=== PATIENT | male | born 1970 | race Caucasian/White ===

== ENCOUNTER 2024-07-28 15:01 | Emergency (ER) | payer BC ==
[2024-07-28 15:13] VITALS: TEMP 102.9
--- NOTE | 2024-07-28 15:28 | ERPHSYRPT ---
- History of Present Illness Time Seen by Provider: 07/28/24 15:20 Source: patient Exam Limitations: no limitations Patient Subjective Stated Complaint: c/o of shortness of breath Triage Nursing Assessment: patient brought into ED by EMS with c/o shortness of breath. patient states that he is has felt bad since yesterday and it keeps getting worse. patient has a productive cough, pt states sputum is yellow/greenish. patient has a temp of 102.9 per our thermometer. patient is 94% on RA. lungs sounds clear throughout. skin is warm to touch, tachycardic, slightly hypertensive, patient doesn't appear to be in any distress at this time. Physician History: This is a 53-year-old white male patient of primary care provider Kwame and presents to the emergency department with 1 day history of productive cough of yellowish-greenish sputum, shortness of breath, myalgias and arthralgias. He presents today with fever of 102.9 F. His room air oxygen saturation levels 94 to 96%. He denies chest pain. He has no known drug allergies and he takes no medications chronically. Patient was brought to the emergency department by the paramedics who provided him with nebulizer treatment of DuoNeb and 125 mg of intravenous Solu-Medrol. He has no known exposures to individuals with similar symptoms or who have been diagnosed with viral illness. Timing/Duration: yesterday Cough Quality/Degree: moderate, productive cough, sputum Possible Cause: no prior episodes Modifying Factors: Improves With: coughing Associated Symptoms: fever, cough, muscle aches, shortness of breath, No chest pain/soreness Allergies/Adverse Reactions: No Known Drug Allergies Allergy (Verified 07/28/24 15:13) Hx Tetanus, Diphtheria Vaccination/Date Given: Yes Hx Influenza Vaccination/Date Given: No Hx Pneumococcal Vaccination/Date Given: No Travel Risk - International Travel Have you traveled outside of the country in past 3 weeks: No - Emerging Infectious Disease Are you exhibiting symptoms associated with any current EIDs: Yes Symptoms: Diarrhea, Shortness of Breath - Review of Systems Constitutional: Fever Eyes: No Symptoms Ears, Nose, & Throat: No Symptoms Respiratory: Cough, Dyspnea Cardiac: No Symptoms Abdominal/Gastrointestinal: No Symptoms Genitourinary Symptoms: No Symptoms Musculoskeletal: Arthralgias, Myalgias Skin: No Symptoms Neurological: No Symptoms Psychological: No Symptoms Endocrine: No Symptoms Hematologic/Lymphatic: No Symptoms Immunological/Allergic: No Symptoms All Other Systems: Reviewed and Negative - Past Medical History Pertinent Past Medical History: Yes Neurological History: No Pertinent History ENT History: No Pertinent History Cardiac History: No Pertinent History Respiratory History: No Pertinent History Endocrine Medical History: No Pertinent History GI Medical History: Gallbladder Disease History: No Pertinent History Psycho-Social History: No Pertinent History Male Reproductive Disorders: No Pertinent History Other Medical History: herniated discs in back - Past Surgical History Past Surgical History: Yes Gastrointestinal: Cholecystectomy Other Surgical History: injections for herniated discs - Social History Smoking Status: Never smoker Exposure to second hand smoke: No Drug Use: none - Social Determinants of Health Will the patient participate in the screening: Declined to provide - Nursing Vital Signs Nursing Vital Signs: Initial Vital Signs Pulse Rate 115 H 07/28/24 15:02 Respiratory Rate 22 07/28/24 15:02 Blood Pressure 195/113 07/28/24 15:02 Pain Scale Pain Intensity 0 - Physical Exam General Appearance: mild distress, alert, anxiety Eye Exam: PERRL/EOMI, eyes nml inspection Ears, Nose, Throat Exam: normal ENT inspection, dry mucous membranes Neck Exam: normal inspection, non-tender, supple, full range of motion Respiratory Exam: normal breath sounds, lungs clear, airway intact, No chest tenderness, No respiratory distress Cardiovascular Exam: tachycardia Gastrointestinal/Abdomen Exam: soft, normal bowel sounds, tenderness Rectal Exam: not done Back Exam: normal inspection, normal range of motion, No CVA tenderness, No vertebral tenderness Extremity Exam: normal inspection, normal range of motion, pelvis stable Neurologic Exam: alert, oriented x 3, cooperative, risk control representative II-XII nml as tested, sensation nml Skin Exam: normal color, warm, dry Lymphatic Exam: No adenopathy SpO2 Interpretation: borderline oxygenation SpO2: 94 O2 Delivery: Room Air - Course Nursing assessment & vital signs reviewed: Yes Ordered Tests: Active Orders 24 hr Category Date Time Status Video Game Programmer STAT Care 07/28/24 15:28 Active IV Insertion STAT Care 07/28/24 15:27 Active Pulse Oximetry (ED) STAT Care 07/28/24 15:27 Active CHEST 1 VIEW (PORTABLE) Stat Exams 07/28/24 15:27 Completed BLOOD CULTURE Stat Lab 07/28/24 15:53 Received CBC W DIFF Stat Lab 07/28/24 15:27 Completed CMP Stat Lab 07/28/24 15:46 Completed MONO SCREEN Stat Lab 07/28/24 15:46 Completed Medication Summary Discontinued Medications Generic Name Dose Route Start Last Admin Trade Name Joe PRN Reason Stop Dose Admin Hydrocodone Bitart/Acetaminophen 15 ml 07/28/24 15:28 07/28/24 15:38 Hydrocodone/Acetaminophen 5 Ml Udcup PO 07/28/24 15:29 15 ml STAT STA Administration Hydrocodone Bitart/Acetaminophen Confirm 07/28/24 15:32 Hydrocodone/Acetaminophen 5 Ml Udcup Administered 07/28/24 15:33 Dose 15 ml .ROUTE .STK-MED ONE Sodium Chloride 1,000 mls @ 999 mls/hr 07/28/24 15:27 07/28/24 15:38 Sodium Chloride 0.9% 1000 Ml IV 07/28/24 16:27 999 mls/hr .Q1H1M STA Administration Sodium Chloride Confirm 07/28/24 15:32 Sodium Chloride 0.9% 1000 Ml Administered 07/28/24 15:33 Dose 1,000 mls @ ud .ROUTE .STK-MED ONE Ibuprofen 600 mg 07/28/24 15:27 07/28/24 15:40 Ibuprofen 600 Mg Tablet PO 07/28/24 15:28 600 mg STAT STA Administration Ibuprofen Confirm 07/28/24 15:32 Ibuprofen 600 Mg Tablet Administered 07/28/24 15:33 Dose 600 mg .ROUTE .STK-MED ONE Ondansetron HCl 4 mg 07/28/24 15:27 07/28/24 15:38 Ondansetron Hcl 4 Mg/2 Ml Vial IV 07/28/24 15:28 4 mg STAT STA Administration Ondansetron HCl Confirm 07/28/24 15:32 Ondansetron Hcl 4 Mg/2 Ml Vial Administered 07/28/24 15:33 Dose 4 mg .ROUTE .STK-MED ONE Oseltamivir Phosphate 75 mg 07/28/24 16:47 Oseltamivir 75 Mg Cap PO 07/28/24 16:48 STAT ONE Lab/Rad Data: Laboratory Result Diagrams 07/28/24 15:27 07/28/24 15:46 Laboratory Results 07/28/24 07/28/24 07/28/24 Range/Units 15:55 15:55 15:46 WBC (4.23-9.07) x10^3/uL RBC (4.63-6.08) x10^6/uL Hgb (13.7-17.5) g/dL Hct (40.1-51.0) % MCV (79.0-92.2) fL MCH (25.7-32.2) pg MCHC (32.3-36.5) g/dL RDW (11.6-14.4) % Plt Count (163-337) x10^3/uL MPV (9.4-12.4) fL Gran % (34.0-67.9) % Immature Gran % (Auto) (0.001-0.429) % Nucleat RBC Rel Count (0.00-0.2) % Eos # (Auto) (0.04-0.54) x10^3/uL Immature Gran # (Auto) (0.001-0.031) x10^3u/L Absolute Lymphs (auto) (1.32-3.57) x10^3/uL Absolute Monos (auto) (0.30-0.82) x10^3/uL Absolute Nucleated RBC (0.00-0.012) x10^3u/L Lymphocytes % (21.8-53.1) % Monocytes % (5.3-12.2) % Eosinophils % (0.8-7.0) % Basophils % (0.2-1.2) % Absolute Granulocytes (1.78-5.38) x10^3/uL Basophils # (0.01-0.08) x10^3/uL Sodium (135-145) mmol/L Potassium (3.5-5.1) mmol/L Chloride (98-107) mmol/L Carbon Dioxide (22-30) mmol/L Anion Gap (5-15) MEQ/L BUN (9-20) mg/dL Creatinine (0.66-1.25) mg/dL Estimated GFR ML/MIN Glucose (74-106) mg/dL Calcium (8.4-10.2) mg/dL Total Bilirubin (0.2-1.3) mg/dL AST (17-59) U/L ALT (0-50) U/L Alkaline Phosphatase (38-126) U/L Serum Total Protein (6.3-8.2) g/dL Albumin (3.5-5.0) g/dL Monoscreen NEGATIVE (NEGATIVE) Influenza Type A Ag POSITIVE A (NEGATIVE) Influenza Type B Ag NEGATIVE (NEGATIVE) RSV (PCR) NEGATIVE (NEGATIVE) SARS-CoV-2 (PCR) NEGATIVE (NEGATIVE) Group A Strep Antibody NOT DETECTED (NEGATIVE) 07/28/24 07/28/24 Range/Units 15:46 15:27 WBC 6.9 (4.23-9.07) x10^3/uL RBC 4.46 L (4.63-6.08) x10^6/uL Hgb 14.3 (13.7-17.5) g/dL Hct 42.0 (40.1-51.0) % MCV 94.2 H (79.0-92.2) fL MCH 32.1 (25.7-32.2) pg MCHC 34.0 (32.3-36.5) g/dL RDW 12.1 (11.6-14.4) % Plt Count 192 (163-337) x10^3/uL MPV 9.7 (9.4-12.4) fL Gran % 82.8 H (34.0-67.9) % Immature Gran % (Auto) 0.3 (0.001-0.429) % Nucleat RBC Rel Count 0.0 (0.00-0.2) % Eos # (Auto) 0.03 L (0.04-0.54) x10^3/uL Immature Gran # (Auto) 0.02 (0.001-0.031) x10^3u/L Absolute Lymphs (auto) 0.63 L (1.32-3.57) x10^3/uL Absolute Monos (auto) 0.46 (0.30-0.82) x10^3/uL Absolute Nucleated RBC 0.00 (0.00-0.012) x10^3u/L Lymphocytes % 9.2 L (21.8-53.1) % Monocytes % 6.7 (5.3-12.2) % Eosinophils % 0.4 L (0.8-7.0) % Basophils % 0.6 (0.2-1.2) % Absolute Granulocytes 5.68 H (1.78-5.38) x10^3/uL Basophils # 0.04 (0.01-0.08) x10^3/uL Sodium 135 (135-145) mmol/L Potassium 3.8 (3.5-5.1) mmol/L Chloride 99 (98-107) mmol/L Carbon Dioxide 25 (22-30) mmol/L Anion Gap 14.6 (5-15) MEQ/L BUN 12 (9-20) mg/dL Creatinine 1.36 H (0.66-1.25) mg/dL Estimated GFR 61.5 ML/MIN Glucose 179 H (74-106) mg/dL Calcium 9.0 (8.4-10.2) mg/dL Total Bilirubin 0.90 (0.2-1.3) mg/dL AST 57 (17-59) U/L ALT 55 H (0-50) U/L Alkaline Phosphatase 80 (38-126) U/L Serum Total Protein 7.6 (6.3-8.2) g/dL Albumin 4.7 (3.5-5.0) g/dL Monoscreen (NEGATIVE) Influenza Type A Ag (NEGATIVE) Influenza Type B Ag (NEGATIVE) RSV (PCR) (NEGATIVE) SARS-CoV-2 (PCR) (NEGATIVE) Group A Strep Antibody (NEGATIVE) - Progress Progress: improved, re-examined Air Movement: good Progress Note: 07/28/24 16:22 My medical decision making and the assignment of moderate complexity to this patient's medical issue today is based on review of the patient's past medical history, review of the patient's medication list, reviewed patient drug allergy list, history present illness and physical findings on examination. The workup in this patient includes placement of intravenous line, infusion of crystalloid solution, chest x-ray, CBC, CMP, lactic acid level, monotest, viral swabs, group A strep test, ibuprofen 600 mg orally, hydrocodone/acetaminophen elixir 15 mL orally. Differential diagnosis includes but is not limited to viral illness, group A strep pharyngitis, upper respiratory infection, pneumonia 07/28/24 16:48 I interpreted the patient's laboratory data results. Based on the laboratory data results, the patient has tested positive for influenza A. The chest x-ray was interpreted by the radiologist and I reviewed the impression. The impression states radiographically nonacute chest. Blood Culture(s) Obtained: Yes Antibiotics given: No Counseled pt/family regarding: lab results, diagnosis, rad results Medical Desision Making - Independent Historian Additional History obtained from: Child - Diagnostic Testing Diagnostic test were ordered, analyzed, and reviewed by me: Yes Radiological Interpretation: Reviewed by me, Teleradiologist Report - Risk of complications The pt has a mod risk of morbidity or mortality based on: Need for prescription drug management - Departure Departure Disposition: Home Clinical Impression: Influenza A H1N1 infection Condition: Stable Critical Care Time: No Referrals: [facility] [NON-STAFF PHY W/O PRIVILEGES] - Follow up/PCP as directed Additional Instructions: Drink plenty of clear liquids before advancing your diet. Take your medications as prescribed. Call your primary care provider tomorrow, 07/29/2024, to make arrangements for follow-up appointment for further evaluation management. Prescriptions: Prednisone 10 mg [Deltasone 10 mg] 10 mg PO TID #12 tablet Hydrocodone/Acetaminophen [Hydrocodone-Acetamn 7.5-325/15] 10 ml PO Q8H PRN #120 ml MDD 30 ml PRN Reason: Cough Oseltamivir 75 mg [Tamiflu 75MG Capsule] 75 mg PO BID #10 cap Albuterol 8 gm Mdi Hfa [Ventolin Hfa MDI] 8 gm IH Q4H #1 unit
[2024-07-28] MEDS ORDERED: MOTRIN 600 MG ONE (15:32)
[2024-07-28] MEDS ORDERED: HYDROCODONE-ACETAMIN 2.5-108/5 ML SOLUTION ONE (15:32)
[2024-07-28] MEDS ORDERED: Sodium Chloride 0.9% 1000 ML 1,000 ML ONE (15:32)
[2024-07-28] MEDS ORDERED: Zofran 4 MG/2 ML VIAL ONE (15:32)
[2024-07-28] MEDS: Zofran 4 MG/2 ML VIAL IV STA (15:38)
[2024-07-28] MEDS: Sodium Chloride 0.9% 1000 ML 1,000 ML IV STA (15:38)
[2024-07-28] MEDS: HYDROCODONE-ACETAMIN 2.5-108/5 ML SOLUTION PO STA (15:38)
[2024-07-28] MEDS: MOTRIN 600 MG PO STA (15:40)
[2024-07-28 16:00] LABS: Absolute Neutrophil Ct (ANC) 5.68 x10^3/uL (1.78-5.38); BASOPHIL % 0.6 % (0.2-1.2); Basophil (Absolute #) 0.04 x10^3/uL (0.01-0.08); Eosinophil % 0.4 % (0.8-7.0); Eosinophil (Absolute #) 0.03 x10^3/uL (0.04-0.54); Hemoglobin 14.3 g/dL (13.7-17.5); IMMATURE GRAN # 0.02 x10^3u/L (0.001-0.031); IMMATURE GRAN % 0.3 % (0.001-0.429); Lymphocyte (Absolute #) 0.63 x10^3/uL (1.32-3.57); Lymphocytes % 9.2 % (21.8-53.1); Mean Cell Volume 94.2 fL (79.0-92.2); Mean Corpuscular Hemoglobin 32.1 pg (25.7-32.2); Mean Platelet Volume 9.7 fL (9.4-12.4); Monocyte (Absolute #) 0.46 x10^3/uL (0.30-0.82); Monocytes % 6.7 % (5.3-12.2); Neutrophil % 82.8 % (34.0-67.9); Platelet Count 192 x10^3/uL (163-337); Red Blood Count 4.46 x10^6/uL (4.63-6.08); Red Cell Distribution Width 12.1 % (11.6-14.4); White Blood Count 6.9 x10^3/uL (4.23-9.07)
[2024-07-28 16:18] LABS: ALBUMIN 4.7 g/dL (3.5-5.0); ANION GAP 14.6 MEQ/L (5-15); BILIRUBIN,TOTAL 0.9 mg/dL (0.2-1.3); Creatinine 1 1.36 mg/dL (0.66-1.25); EST GLOMERULAR FILTRATION RATE 61.5 ML/MIN; Potassium 3.8 mmol/L (3.5-5.1); Total Protein 7.6 g/dL (6.3-8.2)
--- NOTE | 2024-07-28 16:29 | XRAY ---
Indication: Cough. Fever. Comparison: None Portable chest inflated and clear. Heart not enlarged. Bony thorax intact with mild degenerative changes. Impression: Radiographically nonacute chest.
[2024-07-28 16:37] LABS: INFLUENZA B NEGATIVE (NEGATIVE); RESPIRATORY SYNCTIAL VIRUS NEGATIVE (NEGATIVE); SARS-CoV-2 Xpert Express NEGATIVE (NEGATIVE)
[2024-07-28 16:41] LABS: INFLUENZA A POSITIVE (NEGATIVE)
[2024-07-28] MEDS ORDERED: Tamiflu 75MG Capsule PO ONE (16:57)
[2024-07-28] MEDS: Tamiflu 75MG Capsule PO ONE (16:59)
[2024-07-28 17:08] VITALS: BP 126/96; PULSE 103; RESP 16; O2SAT 97
== END 2024-07-28 17:29 | disposition home or self-care (01) ==
LOC: ED 15:01
DX: J10.1 Influenza due to other identified influenza virus with other respiratory manifestations (principal); R06.02 Shortness of breath; R05.1 Acute cough; M79.10 Myalgia, unspecified site; R50.9 Fever, unspecified; Z79.52 Long term (current) use of systemic steroids; Z79.891 Long term (current) use of opiate analgesic; Z79.899 Other long term (current) drug therapy
CPT/HCPCS: 0241U; 36415; 71045; 80053; 85025; 86308; 87040; 87651; 93041; 94760; 96360; 96374; 99284; J2405; A9270-GY